=== PATIENT | female | born 1940 | race Caucasian/White ===

== ENCOUNTER 2023-08-29 19:22 | Outpatient (CLI) | payer MEDICARE, OTHER ==
--- NOTE | 2023-08-29 21:55 | Ultrasound Report ---
PROCEDURE: Duplex Ext Veins Right INDICATIONS: EDEMA TECHNIQUE: Real-time imaging, as well as color and pulse Doppler interrogation, were performed of the lower extr emity deep veins from the inguinal ligament to the popliteal fossa. Attempted visualization of the ca lf veins was performed. COMPARISON: None. FINDINGS: The deep veins are normally compressible, and free of intraluminal thrombus. Color and pu lse Doppler demonstrate normal phasic intraluminal flow. There is normal augmentation response to di stal compression maneuver. A moderate right knee joint effusion is noted. IMPRESSION: 1. No evidence of deep venous thrombosis in the right lower extremity. Reviewed by: Thor Guthrie MD on 08/29/2023 9:54 PM PDT Approved by: Thor Guthrie MD on 08/29/2023 9:54 PM PDT Station ID: [id number]
== END 2023-08-29 19:23 | disposition home or self-care (01) ==
LOC: DI 19:22
PROVIDERS: ATTEND Internal Medicine
DX: R60.0 Localized edema (principal)

== ENCOUNTER 2023-09-04 09:42 | Outpatient (CLI) | payer MEDICARE, OTHER ==
--- NOTE | 2023-09-04 13:08 | XRAY Report ---
PROCEDURE: Knee 3 View RT INDICATIONS: R KNEE PAIN TECHNIQUE: 3 views of the right knee(s) were acquired. COMPARISON: None. FINDINGS: Bones: No acute fracture or dislocation. Severe patellofemoral joint space narrowing with spurring a nd subchondral cystic change present. Mild medial and lateral compartment narrowing also demonstrated . Soft tissues: No knee joint effusion. No suspicious soft tissue calcifications . IMPRESSION: No acute bony abnormality. If there remains a high clinical concern for fracture, consider cross-sect ional imaging now. If pain persists, consider repeat x-ray in 10-14 days or cross-sectional imaging. Degenerative changes of the knee, severe at the patellofemoral compartment. Reviewed by: John Noguera MD on 09/04/2023 1:07 PM PDT Approved by: John Noguera MD on 09/04/2023 1:07 PM PDT Station ID: [id number]
== END 2023-09-04 09:43 | disposition home or self-care (01) ==
LOC: DI 09:42
PROVIDERS: ATTEND Internal Medicine
DX: M17.11 Unilateral primary osteoarthritis, right knee (principal)

== ENCOUNTER 2023-10-07 08:44 | Outpatient (CLI) | payer MEDICARE, OTHER | END 2023-10-07 08:45 | disposition EMS.NT | LOC: EMS 08:44 | DX: Z03.89 Encounter for observation for other suspected diseases and conditions ruled out (principal) ==

== ENCOUNTER 2023-10-07 15:15 | Outpatient (CLI) | payer MEDICARE, OTHER | END 2023-10-07 15:16 | disposition EMS.NT | LOC: EMS 15:15 | DX: Z03.89 Encounter for observation for other suspected diseases and conditions ruled out (principal) ==

== ENCOUNTER 2023-11-24 15:52 | Outpatient (CLI) | payer MEDICARE, OTHER | END 2023-11-24 23:59 | disposition EMS.NT | LOC: EMS 15:52 | DX: Z03.89 Encounter for observation for other suspected diseases and conditions ruled out (principal) ==